=== PATIENT | female | born 1960 | race Caucasian/White ===

== ENCOUNTER 2021-10-29 12:54 | Inpatient (IN) | payer OTHER ==
[~2021-10-29] VITALS: Ht 152.4 cm; Wt 72.0 kg
[2021-10-29] MEDS ORDERED: SODIUM CHLORIDE 0.9% 1,000 ML IV ONE (14:45)
[2021-10-29] MEDS ORDERED: ASPirin 81 mg TAB PO ONE (14:45)
[2021-10-29 14:57] LABS: Albumin 2.4 g/dL (3.4-5.0); BUN/Creatinine Ratio 17.2; Calcium 7.9 mg/dL (8.5-10.1)
[2021-10-29 15:08] LABS: Bilirubin, Total 0.4 mg/dL (0.2-1.0); Total Protein 5.3 g/dL (6.4-8.2)
[2021-10-29 15:19] LABS: Potassium 6.8 mmol/L (3.5-5.1)
[2021-10-29 15:29] LABS: Basophils # (auto) 0 10 ^3/uL (0-0.2); Monocytes # (auto) 0.2 10 ^3/uL (0-1.3)
[2021-10-29 15:31] LABS: Basophils % (auto) 0.8 % (0.0-2.0); Eosinophils # (auto) 0 10 ^3/uL (0-0.8); Eosinophils % (auto) 0.9 % (0.0-7.0); Hematocrit 47.2 % (36.0-46.0); Hemoglobin 15.1 g/dL (12.2-16.2); Lymphocytes # (auto) 0.4 10 ^3/uL (0.4-5.4); Lymphocytes % (auto) 8.8 % (10.0-50.0); Mean Corpuscular Hemoglobin 24.2 pg (28.0-32.0); Mean Corpuscular Volume 75.4 fL (80.0-100.0); Neutrophils # (auto) 4.2 10 ^3/uL (1.6-8.6); Neutrophils % (auto) 85.5 % (37.0-80.0); Nucleated Red Blood Cells % 0.4 %; Red Blood Cells 6.26 10^6/uL (4.0-5.20); Red Cell Distribution Width 16.2 % (11.8-14.3); White Blood Cell 4.9 10^3/uL (4.4-10.8)
[2021-10-29] MEDS ORDERED: InsuLIN REG 1unit/0.01ml Soln (100units/ml) IV ONE (16:15)
[2021-10-29] MEDS ORDERED: CALCIUM GLUC 1,000mg/50ml-NS 50 ML IV ONE (16:15)
[2021-10-29] MEDS ORDERED: SODIUM BICARBONATE 8.4 % INJ 50ML VIAL IV ONE (16:15)
[2021-10-29] MEDS ORDERED: DEXTROSE (50%) 50ML SYRG IV ONE (16:15)
[2021-10-29] MEDS ORDERED: FUROSEMIDE 40 MG/4 ML VIAL IV ONE (17:00)
[2021-10-29] MEDS ORDERED: DEXTROSE (50%) 50ML SYRG IV PRN (21:15)
[2021-10-29] MEDS ORDERED: SODIUM ZIRCONIUM CYCL 10 GM PAK PO ONE (21:15)
[2021-10-29] MEDS ORDERED: NITROGLYCERIN 0.4 MG SL TAB SL PRN (21:15)
[2021-10-29] MEDS ORDERED: ACETAMINOPHEN 325 MG TAB PO PRN (21:15)
[2021-10-29] MEDS ORDERED: MORPHINE SULFATE INJ 2 MG/ml SYRG IV PRN (21:15)
[2021-10-29] MEDS ORDERED: ONDANSETRON HCL 4 MG/2 ML VIAL IV PRN (21:15)
[2021-10-29] MEDS ORDERED: ATORVASTATIN 20 MG TAB PO SCH (22:00)
[2021-10-30] MEDS: ACCU-CHEK COMFORT CURVE STRIP VI SCH ×2 (01:38→06:13)
[2021-10-30] MEDS ORDERED: SODIUM ZIRCONIUM CYCL 10 GM PAK PO ONE (04:00)
[2021-10-30] MEDS ORDERED: DEXTROSE (50%) 50ML SYRG IV ONE (04:00)
[2021-10-30] MEDS ORDERED: ALBUTEROL SULF 2.5 MG/0.5ML(0.5%) NEB SOLN NEB ONE (04:00)
[2021-10-30] MEDS ORDERED: SODIUM BICARBONATE 8.4 % INJ 50ML VIAL IV ONE (04:00)
[2021-10-30] MEDS ORDERED: InsuLIN REG 1unit/0.01ml Soln (100units/ml) IV ONE (04:00)
[2021-10-30] MEDS ORDERED: CALCIUM GLUC 1,000mg/50ml-NS 50 ML IV ONE (04:00)
[2021-10-30] MEDS ORDERED: ALBUTEROL SULF 2.5 MG/0.5ML(0.5%) NEB SOLN ONE (04:03)
[2021-10-30 05:00] VITALS: BP 152/77
[2021-10-30 05:46] LABS: Potassium 4.9 mmol/L (3.5-5.1)
[2021-10-30 05:56] LABS: Albumin 2.3 g/dL (3.4-5.0); BUN/Creatinine Ratio 17.3; Bilirubin, Total 0.3 mg/dL (0.2-1.0); Calcium 8.2 mg/dL (8.5-10.1); Total Protein 5.8 g/dL (6.4-8.2)
[2021-10-30] MEDS: InsuLIN REG 1unit/0.01ml Soln (100units/ml) SC SCH ×2 (06:00)
[2021-10-30 06:21] LABS: Basophils # (auto) 0.1 10 ^3/uL (0-0.2); Eosinophils # (auto) 0.2 10 ^3/uL (0-0.8); Hemoglobin 8.9 g/dL (12.2-16.2); Mean Corpuscular Hemoglobin 24.6 pg (28.0-32.0); Monocytes # (auto) 0.9 10 ^3/uL (0-1.3); Red Blood Cells 3.61 10^6/uL (4.0-5.20); Red Cell Distribution Width 16.2 % (11.8-14.3); White Blood Cell 11.9 10^3/uL (4.4-10.8)
[2021-10-30 06:24] LABS: Basophils % (auto) 1.1 % (0.0-2.0); Eosinophils % (auto) 1.4 % (0.0-7.0); Hematocrit 27.9 % (36.0-46.0); Lymphocytes # (auto) 2.7 10 ^3/uL (0.4-5.4); Lymphocytes % (auto) 22.5 % (10.0-50.0); Mean Corpuscular Hgb Conc. 31.8 g/dL (32.0-36.0); Mean Corpuscular Volume 77.3 fL (80.0-100.0); Monocytes % (auto) 7.5 % (0.0-12.0); Neutrophils # (auto) 8.1 10 ^3/uL (1.6-8.6); Neutrophils % (auto) 67.5 % (37.0-80.0)
[2021-10-30] MEDS ORDERED: PANTOPRAZOLE 40 MG TAB PO SCH (10:00)
[2021-10-30] MEDS ORDERED: ASPirin 81 mg TAB PO SCH (10:00)
== END 2021-10-30 06:37 | disposition left against medical advice (07) | DRG 280 ==
LOC: ER 12:54 → TELE 21:21
PROVIDERS: ADMIT Nurse Practitioner; ATTEND Nurse Practitioner
DX: I21.4 Non-ST elevation (NSTEMI) myocardial infarction (principal); I50.33 Acute on chronic diastolic (congestive) heart failure; N17.1 Acute kidney failure with acute cortical necrosis; E87.1 Hypo-osmolality and hyponatremia; I13.0 Hypertensive heart and chronic kidney disease with heart failure and stage 1 through stage 4 chronic kidney disease, or unspecified chronic kidney disease; Z20.822 Contact with and (suspected) exposure to COVID-19; E11.22 Type 2 diabetes mellitus with diabetic chronic kidney disease; E11.65 Type 2 diabetes mellitus with hyperglycemia; E78.5 Hyperlipidemia, unspecified; E87.5 Hyperkalemia; F17.210 Nicotine dependence, cigarettes, uncomplicated; G25.81 Restless legs syndrome; J44.9 Chronic obstructive pulmonary disease, unspecified; N18.9 Chronic kidney disease, unspecified
CPT/HCPCS: 36415; 36600; 71045; 80053; 82805; 82962; 83735; 83880; 84100; 84132; 84484; 85025; 85379; 93005; 94640; 96361; 96365; 96366; 96375; 96376; 99291; G0378; J1815

== ENCOUNTER 2022-01-19 15:18 | Inpatient (IN) | payer OTHER, MEDICAID ==
[~2022-01-19] VITALS: Ht 152.4 cm; Wt 92.0 kg
[2022-01-19] MEDS ORDERED: SODIUM CHLORIDE 0.9% 1,000 ML IV ONE (16:00)
[2022-01-19] MEDS ORDERED: ASPirin 81 mg TAB PO ONE (16:00)
[2022-01-19 17:03] LABS: Basophils # (auto) 0.2 10 ^3/uL (0-0.2); Eosinophils # (auto) 0.1 10 ^3/uL (0-0.8); Hemoglobin 9.4 g/dL (12.2-16.2); Lymphocytes # (auto) 0.7 10 ^3/uL (0.4-5.4); Lymphocytes % (auto) 8.1 % (10.0-50.0); Mean Corpuscular Hgb Conc. 31.4 g/dL (32.0-36.0); Monocytes # (auto) 0.7 10 ^3/uL (0-1.3); Monocytes % (auto) 7.9 % (0.0-12.0)
[2022-01-19 17:05] LABS: Basophils % (auto) 2.4 % (0.0-2.0); Eosinophils % (auto) 1.5 % (0.0-7.0); Hematocrit 30.1 % (36.0-46.0); Mean Corpuscular Hemoglobin 24.4 pg (28.0-32.0); Mean Corpuscular Volume 77.8 fL (80.0-100.0); Neutrophils % (auto) 80.1 % (37.0-80.0); Red Blood Cells 3.87 10^6/uL (4.0-5.20); Red Cell Distribution Width 17.3 % (11.8-14.3); White Blood Cell 8.8 10^3/uL (4.4-10.8)
[2022-01-19 17:21] LABS: INR 1.14 (0.9-1.15); Partial Thromboplastin Time 25.1 sec (24.6-33.4)
[2022-01-19 18:20] LABS: BUN/Creatinine Ratio 7.4; Potassium 4.4 mmol/L (3.5-5.1)
[2022-01-19 18:21] LABS: Bilirubin, Total 0.5 mg/dL (0.2-1.0); Calcium 8.3 mg/dL (8.5-10.1)
[2022-01-19 18:23] LABS: Albumin 2.9 g/dL (3.4-5.0); Magnesium 2.3 mg/dL (1.6-2.6)
[2022-01-19] MEDS ORDERED: FUROSEMIDE 40 MG/4 ML VIAL IV ONE (18:45)
[2022-01-19] MEDS ORDERED: ALBUMIN 25% 100 ML IV ONE (21:15)
[2022-01-19] MEDS ORDERED: ACETAMINOPHEN 325 MG TAB PO PRN (21:15)
[2022-01-19] MEDS ORDERED: DEXTROSE (50%) 50ML SYRG IV PRN (21:15)
[2022-01-19] MEDS ORDERED: ONDANSETRON HCL 4 MG/2 ML VIAL IV PRN (21:15)
[2022-01-19] MEDS ORDERED: DOCUSATE SOD 100 MG CAP PO PRN (21:15)
[2022-01-19] MEDS: InsuLIN REG 1unit/0.01ml Soln (100units/ml) SC SCH (23:41)
[2022-01-19] MEDS: ACCU-CHEK COMFORT CURVE STRIP VI SCH (23:42)
[2022-01-19] MEDS: SODIUM CHLOR 0.9% PF (SALINE LOCK) 10ML VIAL/SYR IV SCH (23:45)
[2022-01-19] MEDS: FAMOTIDINE (10MG/ML) 2ML VL IV SCH (23:45)
[2022-01-20] MEDS ORDERED: NITROGLYCERIN 0.4 MG SL TAB SL PRN
[2022-01-20 04:31] VITALS: BP 125/45
[2022-01-20] MEDS: InsuLIN REG 1unit/0.01ml Soln (100units/ml) SC SCH ×4 (06:39→21:34)
[2022-01-20] MEDS: SODIUM CHLOR 0.9% PF (SALINE LOCK) 10ML VIAL/SYR IV SCH ×3 (06:39→21:33)
[2022-01-20] MEDS: ACCU-CHEK COMFORT CURVE STRIP VI SCH ×4 (06:39→21:33)
[2022-01-20 08:00] VITALS: BP 135/42
[2022-01-20] MEDS: SEVELAMER 800 MG TAB PO SCH ×4 (08:31→18:05)
[2022-01-20 08:36] LABS: Hemoglobin 8.8 g/dL (12.2-16.2); Monocytes # (auto) 0.6 10 ^3/uL (0-1.3); Neutrophils # (auto) 5.7 10 ^3/uL (1.6-8.6)
[2022-01-20 08:38] LABS: Basophils # (auto) 0.2 10 ^3/uL (0-0.2); Basophils % (auto) 2.5 % (0.0-2.0); Eosinophils # (auto) 0.1 10 ^3/uL (0-0.8); Eosinophils % (auto) 1.8 % (0.0-7.0); Hematocrit 27.3 % (36.0-46.0); Lymphocytes # (auto) 0.7 10 ^3/uL (0.4-5.4); Mean Corpuscular Hemoglobin 24.8 pg (28.0-32.0); Mean Corpuscular Hgb Conc. 32.2 g/dL (32.0-36.0); Mean Corpuscular Volume 76.9 fL (80.0-100.0); Monocytes % (auto) 8.2 % (0.0-12.0); Neutrophils % (auto) 78.5 % (37.0-80.0); Nucleated Red Blood Cells % 0.1 %; Red Blood Cells 3.55 10^6/uL (4.0-5.20); Red Cell Distribution Width 17.7 % (11.8-14.3); White Blood Cell 7.2 10^3/uL (4.4-10.8)
[2022-01-20 09:10] LABS: Calcium 8.1 mg/dL (8.5-10.1); Potassium 5.1 mmol/L (3.5-5.1)
[2022-01-20 09:14] LABS: BUN/Creatinine Ratio 7.6; Bilirubin, Total 0.6 mg/dL (0.2-1.0); Total Protein 5.9 g/dL (6.4-8.2)
[2022-01-20 10:03] LABS: Urine Bacteria FEW /hpf (None Seen); Urine Blood TRACE /uL (Negative); Urine Hyaline Cast FEW /lpf (0 - 2); Urine Mucus FEW (None Seen); Urine Specific Gravity 1.015 (1.001-1.035); Urine WBC 190 /hpf (0 - 5); Urine WBC Clumps PRESENT /hpf (None Seen)
[2022-01-20] MEDS: amLODIPine BESYLATE 5 MG TAB PO SCH (11:01)
[2022-01-20] MEDS: B-COMPLEX W/ C & FOLIC ACID(NEPHROVITE TAB) PO SCH (11:02)
[2022-01-20] MEDS: ASPirin 81 mg TAB PO SCH (11:02)
[2022-01-20] MEDS: FUROSEMIDE 40 MG/4 ML VIAL IV SCH (11:04)
[2022-01-20] MEDS: FAMOTIDINE (10MG/ML) 2ML VL IV SCH ×2 (11:04→21:43)
[2022-01-20 12:00] VITALS: BP 155/58
[2022-01-20] MEDS: IPRATROPIUM BROM 0.5 MG/2.5ML INH SOL NEB SCH ×3 (13:38→23:48)
[2022-01-20] MEDS ORDERED: PRAMIPEXOLE DIHYDROCHLORIDE MO 0.25 MG TAB PO SCH (14:00)
[2022-01-20 16:00] VITALS: BP 151/54
[2022-01-20] MEDS: hydrALAZINE HCL 20 MG/ML VL IV PRN (16:36)
[2022-01-20 22:00] VITALS: BP 151/46
[2022-01-20] MEDS: HYDROcodone-ACET 5/325MG TAB PO PRN (23:52)
[2022-01-21 01:10] VITALS: BP 136/61
[2022-01-21 05:00] VITALS: BP 178/56
[2022-01-21] MEDS: InsuLIN REG 1unit/0.01ml Soln (100units/ml) SC SCH ×4 (06:08→21:59)
[2022-01-21] MEDS: SODIUM CHLOR 0.9% PF (SALINE LOCK) 10ML VIAL/SYR IV SCH ×3 (06:08→21:58)
[2022-01-21] MEDS: ACCU-CHEK COMFORT CURVE STRIP VI SCH ×4 (06:08→21:58)
[2022-01-21 06:10] LABS: Hemoglobin 9.6 g/dL (12.2-16.2); Monocytes # (auto) 0.7 10 ^3/uL (0-1.3); Monocytes % (auto) 7.4 % (0.0-12.0); Neutrophils # (auto) 7.2 10 ^3/uL (1.6-8.6)
[2022-01-21 06:13] LABS: Basophils # (auto) 0.2 10 ^3/uL (0-0.2); Eosinophils # (auto) 0.2 10 ^3/uL (0-0.8); Eosinophils % (auto) 1.7 % (0.0-7.0); Hematocrit 30.5 % (36.0-46.0); Lymphocytes # (auto) 0.8 10 ^3/uL (0.4-5.4); Lymphocytes % (auto) 8.4 % (10.0-50.0); Mean Corpuscular Hemoglobin 24.5 pg (28.0-32.0); Mean Corpuscular Hgb Conc. 31.5 g/dL (32.0-36.0); Mean Corpuscular Volume 77.8 fL (80.0-100.0); Neutrophils % (auto) 80.5 % (37.0-80.0); Nucleated Red Blood Cells % 0.1 %; Red Blood Cells 3.92 10^6/uL (4.0-5.20); Red Cell Distribution Width 17.8 % (11.8-14.3)
[2022-01-21 06:19] VITALS: BP 94/52
[2022-01-21] MEDS: IPRATROPIUM BROM 0.5 MG/2.5ML INH SOL NEB SCH ×3 (06:36→17:58)
[2022-01-21 06:57] LABS: BUN/Creatinine Ratio 8.5; Calcium 8.1 mg/dL (8.5-10.1); Magnesium 2.3 mg/dL (1.6-2.6); Potassium 4.6 mmol/L (3.5-5.1)
[2022-01-21] MEDS ORDERED: SODIUM CHL 0.9% 1000 ML BAG XX ONE (07:00)
[2022-01-21] MEDS: SEVELAMER 800 MG TAB PO SCH ×3 (08:45→16:51)
[2022-01-21] MEDS: FUROSEMIDE 40 MG/4 ML VIAL IV SCH (08:46)
[2022-01-21] MEDS: FAMOTIDINE (10MG/ML) 2ML VL IV SCH ×2 (08:51→21:57)
[2022-01-21] MEDS: ASPirin 81 mg TAB PO SCH (08:51)
[2022-01-21] MEDS: B-COMPLEX W/ C & FOLIC ACID(NEPHROVITE TAB) PO SCH (08:51)
[2022-01-21] MEDS: amLODIPine BESYLATE 5 MG TAB PO SCH (08:52)
[2022-01-21] MEDS: LORazepam 0.5 MG TAB PO PRN ×2 (09:02→17:07)
[2022-01-21 09:47] VITALS: BP 149/35
[2022-01-21 10:22] LABS: Free T3 2.15 pg/mL (2.3-4.2); Free T4 (Free Thyroxine) 0.77 ng/dL (0.89-1.76)
[2022-01-21 12:22] VITALS: BP 142/63
[2022-01-21] MEDS: hydrALAZINE HCL 20 MG/ML VL IV PRN (16:17)
[2022-01-21] MEDS: HYDROcodone-ACET 5/325MG TAB PO PRN (18:35)
[2022-01-21] MEDS: EPOETIN ALFA-EPBX 10,000 UNIT/1ML VIAL SC ONE ×2 (21:48→21:57)
[2022-01-21 22:00] VITALS: BP 144/47
[2022-01-22 05:00] VITALS: BP 130/46
[2022-01-22 06:00] LABS: Calcium 8.5 mg/dL (8.5-10.1); Potassium 4.3 mmol/L (3.5-5.1)
[2022-01-22 06:06] LABS: BUN/Creatinine Ratio 7.9
[2022-01-22] MEDS ORDERED: SODIUM CHL 0.9% 1000 ML BAG XX ONE (07:00)
[2022-01-22] MEDS: InsuLIN REG 1unit/0.01ml Soln (100units/ml) SC SCH ×4 (07:00→21:49)
[2022-01-22] MEDS: ACCU-CHEK COMFORT CURVE STRIP VI SCH ×4 (07:16→21:48)
[2022-01-22] MEDS: SODIUM CHLOR 0.9% PF (SALINE LOCK) 10ML VIAL/SYR IV SCH ×3 (07:17→21:48)
[2022-01-22] MEDS: IPRATROPIUM BROM 0.5 MG/2.5ML INH SOL NEB SCH ×3 (07:42→18:58)
[2022-01-22 09:00] VITALS: BP 172/49
[2022-01-22] MEDS: SEVELAMER 800 MG TAB PO SCH ×3 (09:21→17:59)
[2022-01-22] MEDS: amLODIPine BESYLATE 5 MG TAB PO SCH (10:24)
[2022-01-22] MEDS: B-COMPLEX W/ C & FOLIC ACID(NEPHROVITE TAB) PO SCH (10:24)
[2022-01-22] MEDS: ASPirin 81 mg TAB PO SCH (10:25)
[2022-01-22] MEDS: FUROSEMIDE 100 MG/10ML VIAL IV SCH (10:25)
[2022-01-22] MEDS: LORazepam 0.5 MG TAB PO PRN (10:28)
[2022-01-22] MEDS: HYDROcodone-ACET 5/325MG TAB PO PRN (12:33)
[2022-01-22] MEDS: FAMOTIDINE (10MG/ML) 2ML VL IV SCH ×2 (12:50→13:02)
[2022-01-22 13:00] VITALS: BP 179/54
[2022-01-22 14:00] VITALS: BP 174/68
[2022-01-22] MEDS ORDERED: EPOETIN ALFA-EPBX 10,000 UNIT/1ML VIAL SC ONE (21:00)
[2022-01-22 23:14] VITALS: BP 191/70
[2022-01-23] MEDS: LORazepam 0.5 MG TAB PO PRN ×2 (00:22→09:50)
[2022-01-23] MEDS: HYDROcodone-ACET 5/325MG TAB PO PRN (00:26)
[2022-01-23 00:27] VITALS: BP 191/70
[2022-01-23] MEDS: IPRATROPIUM BROM 0.5 MG/2.5ML INH SOL NEB SCH ×3 (02:14→13:24)
[2022-01-23] MEDS: SODIUM CHLOR 0.9% PF (SALINE LOCK) 10ML VIAL/SYR IV SCH ×2 (06:00→11:14)
[2022-01-23 06:17] VITALS: BP 185/70
[2022-01-23 06:25] LABS: Potassium 4.4 mmol/L (3.5-5.1)
[2022-01-23 06:28] LABS: BUN/Creatinine Ratio 9.8; Calcium 8.7 mg/dL (8.5-10.1)
[2022-01-23] MEDS: InsuLIN REG 1unit/0.01ml Soln (100units/ml) SC SCH ×3 (07:00→16:19)
[2022-01-23] MEDS ORDERED: SODIUM CHL 0.9% 1000 ML BAG XX ONE (07:00)
[2022-01-23] MEDS: ACCU-CHEK COMFORT CURVE STRIP VI SCH ×3 (07:03→16:19)
[2022-01-23] MEDS: B-COMPLEX W/ C & FOLIC ACID(NEPHROVITE TAB) PO SCH (08:38)
[2022-01-23] MEDS: SEVELAMER 800 MG TAB PO SCH ×2 (08:38→11:25)
[2022-01-23] MEDS: ASPirin 81 mg TAB PO SCH (08:38)
[2022-01-23] MEDS: amLODIPine BESYLATE 5 MG TAB PO SCH (08:39)
[2022-01-23] MEDS: FAMOTIDINE (10MG/ML) 2ML VL IV SCH (08:39)
[2022-01-23] MEDS: FUROSEMIDE 100 MG/10ML VIAL IV SCH (08:39)
[2022-01-23 09:00] VITALS: BP 188/64
[2022-01-23] MEDS ORDERED: METH4PAK PO (09:12)
[2022-01-23] MEDS ORDERED: AML5T PO (09:12)
[2022-01-23] MEDS ORDERED: ASPI-325 PO (09:12)
[2022-01-23] MEDS ORDERED: hydrALAZINE HCL 25 MG TAB PO PRN (09:15)
[2022-01-23] MEDS ORDERED: amLODIPine BESYLATE 5 MG TAB PO SCH (10:00)
[2022-01-23] MEDS ORDERED: predniSONE 20 MG TAB PO SCH (10:00)
[2022-01-23 12:44] VITALS: BP 165/85
[2022-01-23 13:00] VITALS: BP 185/74
[2022-01-23 16:34] VITALS: BP 141/92
[2022-01-23] MEDS ORDERED: EPOETIN ALFA-EPBX 10,000 UNIT/1ML VIAL SC ONE (21:00)
== END 2022-01-23 17:25 | disposition home health service (06) | DRG 291 ==
LOC: EDBD 15:18 → ER 15:18 → TELE 23:46 → TELE-WESTW 01-20 04:10
PROVIDERS: ADMIT Nurse Practitioner Family; ATTEND Internal Medicine Geriatric Medicine
PROC: 5A1D70Z Performance of Urinary Filtration, Intermittent, Less than 6 Hours Per Day (ICD-10-PCS; principal; 2022-01-21)
PROC: 5A1D70Z Performance of Urinary Filtration, Intermittent, Less than 6 Hours Per Day (ICD-10-PCS; 2022-01-23)
DX: I13.2 Hypertensive heart and chronic kidney disease with heart failure and with stage 5 chronic kidney disease, or end stage renal disease (principal); I50.33 Acute on chronic diastolic (congestive) heart failure; J96.20 Acute and chronic respiratory failure, unspecified whether with hypoxia or hypercapnia; N18.6 End stage renal disease; J91.8 Pleural effusion in other conditions classified elsewhere; E44.0 Moderate protein-calorie malnutrition; I48.20 Chronic atrial fibrillation, unspecified; Z20.822 Contact with and (suspected) exposure to COVID-19; D63.1 Anemia in chronic kidney disease; E03.8 Other specified hypothyroidism; E66.01 Morbid (severe) obesity due to excess calories; E11.65 Type 2 diabetes mellitus with hyperglycemia; E88.09 Other disorders of plasma-protein metabolism, not elsewhere classified; E11.22 Type 2 diabetes mellitus with diabetic chronic kidney disease; E78.5 Hyperlipidemia, unspecified; E87.5 Hyperkalemia; F17.210 Nicotine dependence, cigarettes, uncomplicated; J44.9 Chronic obstructive pulmonary disease, unspecified; Z68.39 Body mass index [BMI] 39.0-39.9, adult; Z99.2 Dependence on renal dialysis; Z88.5 Allergy status to narcotic agent; Z88.6 Allergy status to analgesic agent; Z88.8 Allergy status to other drugs, medicaments and biological substances; Z91.14 Patient's other noncompliance with medication regimen
CPT/HCPCS: 36415; 71045; 80048; 80053; 81001; 82962; 83735; 83880; 84439; 84443; 84481; 84484; 85025; 85379; 85610; 85730; 87081; 87426; 90935; 93005; 93306; 94640; 96365; 96375; 97116; 97162; 97530; G0378; J1642; J1815; J3490; P9047